=== PATIENT | male | born 1985 | race American Indian/Alaskan Native ===

== ENCOUNTER 2019-01-12 19:09 | Emergency (ER) | payer OTHER ==
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
[2019-01-12 19:38] VITALS: BP 124/77
[2019-01-12] MEDS ORDERED: IBUPROFEN PO ONE (19:40)
[2019-01-12] MEDS ORDERED: IBUPROFEN ONE (19:43)
--- NOTE | 2019-01-12 21:17 | XRay Report ---
PROCEDURE: XR SHOULDER 2+V LT TECHNIQUE: Left shoulder radiographs, three views. HISTORY: shoulder pain COMPARISONS: None . FINDINGS: Fracture (s) and/or Dislocation(s): None . Joint space(s): There is increased acromioclavicular joint space . Soft tissues: Normal . Bone mineralization: Normal . Foreign bodies: None . IMPRESSION: Increased acromioclavicular joint space is suspicious for subluxation. Weightbearing view s and comparison with contralateral joint are recommended.. This document is electronically signed by Nando Rodriguez MD., Jan 12 2019 09:15:17 PM ET
--- NOTE | 2019-01-12 21:18 | XRay Report ---
PROCEDURE: XR SPINE LUMBOSACRAL 2-3V TECHNIQUE: Lumbar spine radiographs, three views. HISTORY: low back pain COMPARISONS: None . FINDINGS: Alignment: Normal . Vertebral body heights/Disk spaces: Normal . Fracture(s): None . Facets: Normal . Bone mineralization: Normal . IMPRESSION: Normal Examination . This document is electronically signed by Nando Rodriguez MD., Jan 12 2019 09:16:28 PM ET
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
== END 2019-01-13 02:40 | disposition home or self-care (01) ==
LOC: EDBD → ED 19:09
DX: S16.1XXA Strain of muscle, fascia and tendon at neck level, initial encounter (principal); M25.512 Pain in left shoulder; M54.5 Low back pain; M25.561 Pain in right knee; F17.200 Nicotine dependence, unspecified, uncomplicated; F12.10 Cannabis abuse, uncomplicated; V49.49XA Driver injured in collision with other motor vehicles in traffic accident, initial encounter; Y93.89 Activity, other specified; Y92.410 Unspecified street and highway as the place of occurrence of the external cause; Y99.8 Other external cause status
CPT/HCPCS: 72040; 72100